=== PATIENT | male | born 1985 | race Caucasian/White ===

== ENCOUNTER 2018-01-04 11:54 | Emergency (ER) | payer OTHER ==
[~2018-01-04] VITALS: Ht 177.8 cm; Wt 107.0 kg
== END 2018-01-04 12:15 | disposition home or self-care (01) ==
LOC: ED 11:54
DX: M79.672 Pain in left foot (principal); W20.8XXA Other cause of strike by thrown, projected or falling object, initial encounter

== ENCOUNTER 2024-01-01 15:05 | Emergency (ER) | payer OTHER ==
[~2024-01-01] VITALS: Ht 177.8 cm; Wt 123.6 kg
[2024-01-01] MEDS ORDERED: AUGMENTIN125 MG/51 PO (15:35)
[2024-01-01 15:45] VITALS: BP 141/94
== END 2024-01-01 15:54 | disposition home or self-care (01) ==
LOC: ED 15:05
DX: K11.20 Sialoadenitis, unspecified (principal); F17.200 Nicotine dependence, unspecified, uncomplicated; Z91.018 Allergy to other foods; Z88.2 Allergy status to sulfonamides; Z88.8 Allergy status to other drugs, medicaments and biological substances
CPT/HCPCS: 99283